=== PATIENT | female | born 1960 | race Caucasian/White ===

== ENCOUNTER 2022-11-14 06:58 | Day surgery (SDC) | payer MEDICAID ==
[~2022-11-14] VITALS: Ht 165.1 cm; Wt 63.5 kg
[2022-11-14] MEDS ORDERED: DIPHENHYDRAMINE INJ 50 MG/ML VIAL ONE (08:54)
[2022-11-14] MEDS ORDERED: ISOVUE-300 (IOPAMIDOL) 100 ML INFUS..BTL IV ONE (09:00)
[2022-11-14] MEDS ORDERED: LIDOCAINE 2%, 20 ML MDV ONE (09:00)
[2022-11-14] MEDS ORDERED: methylPREDNISolone ACETATE 40 MG/ML ONE (09:00)
[2022-11-14] MEDS ORDERED: NORMAL SALINE 10 ML VIAL ONE (09:00)
[2022-11-14] MEDS: MIDAZOLAM HCL 5 MG/5 ML VIAL ONE ×2 (09:31→09:38)
[2022-11-14] MEDS: fentaNYL CITRATE/PF 100 MCG/2 ML AMP ONE ×2 (09:32→09:38)
[2022-11-14 17:46] VITALS: BP_SYST 137
== END 2022-11-14 10:40 | disposition home or self-care (01) ==
LOC: SDS 06:58 → SMU 06:59 → SDS 10:40
PROVIDERS: ATTEND Internal Medicine
DX: M47.816 Spondylosis without myelopathy or radiculopathy, lumbar region (principal); M51.16 Intervertebral disc disorders with radiculopathy, lumbar region; G89.29 Other chronic pain; M96.1 Postlaminectomy syndrome, not elsewhere classified; Z79.899 Other long term (current) drug therapy; Z20.822 Contact with and (suspected) exposure to COVID-19
CPT/HCPCS: 36415; 64493; U0003; J1200; J2001; J1030; J2250; J3010; Q9967; 76000